=== PATIENT | female | born 1990 | race Caucasian/White ===

== ENCOUNTER 2016-08-18 08:40 | Emergency (ER) | payer OTHER ==
[2016-08-18 08:55] VITALS: BP 116/67
--- NOTE | 2016-08-18 10:05 | UC ---
Complaint Female HPI - HPI Summary HPI Summary: The patient comes in today for: 1. Hematuria: Onset: Yesterday. Palliative/provocative: Urination. Quality: Burning. Region: Severity: 09/25 Time: Constant. Associated symptoms: Vaginal bleeding: None Rectal bleeding: None. Dysuria: "There is some heat to urination." Urinary frequency: None. Urinary urgency: None. Fevers: None. Last UTI: Unknown. Dysparunia: Noticed two nights ago. She suspected that she may have had a UTI in the past. Previous UTI: These would usually present with "heat" with urination. She states that the present discomfort is more than her UTI's in the past. She states that she drank beet juice. * - History Of Current Complaint Chief Complaint: UC Stated Complaint: BLOOD IN URINE Time Seen by Provider: 08/18/16 09:57 Hx Obtained From: Patient Hx Last Menstrual Period: 07/31/16, has IUD ?: No - Allergies/Home Medications Allergies/Adverse Reactions: Allergies Allergy/AdvReac Type Severity Reaction Status Date / Time Bupropion [From Wellbutrin] Allergy Rash Verified 08/18/16 08:47 PMH/Surg Hx/FS Hx/Imm Hx Previously Healthy: Yes Endocrine History Of: Denies: Diabetes, Thyroid Disease, Hyperthyroidism, Hypothyroidism, Dyslipidemia Cardiovascular History Of: Denies: Cardiac Disorders, Hypertension, Pacemaker/ICD, Myocardial Infarction , Congestive Heart Failure, Atrial Fibrillation, Deep Vein Thrombosis, Bleeding Disorders Respiratory History Of: Denies: COPD, Asthma, Bronchitis, Pneumonia, Pulmonary Embolism GI/ History Of: Denies: Gastroesophageal Reflux, Ulcer, Gastrointestinal Bleed, Gall Bladder Disease, Kidney Stones, Diverticulitis, Renal Disease, Urosepsis Neurological History Of: Denies: TIA, CVA, Dementia, Seizures, Migraine Psychological History Of: Denies: Anxiety, Depression, Bipolar Disorder, Schizophrenia, Post Traumatic Stress Disorder Cancer History Of: Denies: Lung Cancer, Colorectal Cancer, Breast Cancer, Prostate Cancer, Cervical Cancer Other History Of: Negative For: HIV, Hepatitis B, Hepatitis C, Anticoagulant Therapy - Surgical History Surgical History: None - Family History Known Family History: Positive: Cardiac Disease Negative: Hypertension - Social History Occupation: Employed Full-time Alcohol Use: None Substance Use Type: None Smoking Status (MU): Light Every Day Tobacco Smoker Amount Used/How Often: 1-2 sig a day - Immunization History Most Recent Influenza Vaccination: none Review of Systems Constitutional: Negative Skin: Negative Eyes: Negative ENT: Negative Respiratory: Cough - She minimizes this symptom. She was not coughing during the exam. Cardiovascular: Negative Gastrointestinal: Negative Genitourinary: Dysuria, Hematuria All Other Systems Reviewed And Are Negative: Yes Physical Exam Triage Information Reviewed: Yes Appearance: Well-Appearing, No Pain Distress, Well-Nourished Vital Signs: Initial Vital Signs Temp 98.7 F 08/18/16 08:48 Pulse 74 08/18/16 08:48 Resp 16 08/18/16 08:48 BP 116/67 08/18/16 08:48 Pulse Ox 98 08/18/16 08:48 Vital Signs Reviewed: Yes Eyes: Positive: Conjunctiva Clear. Negative: Discharge ENT: Positive: Hearing grossly normal. Negative: Pharyngeal erythema, Nasal congestion, Nasal drainage, TM bulging, TM dull, TM red, Tonsillar swelling, Tonsillar exudate Dental: Negative: Gross Decay/Caries @, Dental Fracture @ Neck: Positive: Supple, Nontender, No Lymphadenopathy. Negative: Nuchal Rigidity Respiratory: Positive: Chest non-tender, Lungs clear, No respiratory distress, No accessory muscle use. Negative: Rhonchi, Wheezing Cardiovascular: Positive: RRR, No Murmur Abdomen Description: Positive: Nontender, No Organomegaly, Soft. Negative: CVA Tenderness (R), CVA Tenderness (L), Distended, Guarding Musculoskeletal: Positive: Strength Intact, ROM Intact, No Edema Neurological: Positive: Alert, Muscle Tone Normal Psychological: Positive: Age Appropriate Behavior, Consolable Skin: Negative: rashes, breakdown Diagnostics - Laboratory Diagnostic Studies Completed/Ordered: Urine screen: specific gravity: 1.035. WBC: 75. Nitrite: (-). Blood: (-). Protein: 30. Glucose: (-) Complaint Female Dx - Differential Dx/Diagnosis Provider Diagnoses: UTI Discharge - Discharge Plan Condition: Stable Disposition: HOME Patient Education Materials: Urinary Tract Infection in Women (ED) Referrals: Rachel Miller MD [Primary Care Provider] - 1 Week (Please see your primary care provider in a week to see how well you are doing. If you get worse, please be seen sooner in the ER or through us.)
== END 2016-08-18 10:25 | disposition home or self-care (01) ==
LOC: UCEAST 08:40
DX: N39.0 Urinary tract infection, site not specified (principal); R31.9 Hematuria, unspecified; Z87.440 Personal history of urinary (tract) infections; Z88.8 Allergy status to other drugs, medicaments and biological substances; F17.210 Nicotine dependence, cigarettes, uncomplicated
CPT/HCPCS: 81002; 87086; 99212; G0463

== ENCOUNTER 2016-09-24 17:53 | Emergency (ER) | payer OTHER ==
[2016-09-24 18:18] VITALS: BP 128/56
[2016-09-24] MEDS ORDERED: Ibuprofen TAB* 600 MG PO ONE (18:53)
[2016-09-24] MEDS ORDERED: Penicillin G Benzathine 1.2MU* 1,200,000 UNITS/2 ML SYR IM ONE (19:03)
--- NOTE | 2016-09-24 19:08 | UC ---
Throat Pain/Nasal Maulik HPI - HPI Summary HPI Summary: Rapid onset of ST, fever, aching, malaise starting last night. 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 Feels like past strep infections. - History of Current Complaint Chief Complaint: UCGeneralIllness Stated Complaint: SORE THROAT Time Seen by Provider: 09/24/16 18:49 Hx Obtained From: Patient Hx Last Menstrual Period: mid August, has IUD ?: No Onset/Duration: Gradual Onset, Lasting Hours Severity: Moderate Cough: None Associated Signs & Symptoms: Positive: Fever - Allergies/Home Medications Allergies/Adverse Reactions: Allergies Allergy/AdvReac Type Severity Reaction Status Date / Time Bupropion [From Wellbutrin] Allergy Rash Verified 09/24/16 18:09 Home Medications: Home Medications Acetaminophen [Extra Strength Acetaminop] 1,000 mg PO Q6H PRN 09/24/16 [History Confirmed 09/24/16] PMH/Surg Hx/FS Hx/Imm Hx Endocrine History Of: Denies: Diabetes, Thyroid Disease, Hyperthyroidism, Hypothyroidism, Dyslipidemia Cardiovascular History Of: Denies: Cardiac Disorders, Hypertension, Pacemaker/ICD, Myocardial Infarction , Congestive Heart Failure, Atrial Fibrillation, Deep Vein Thrombosis, Bleeding Disorders Respiratory History Of: Denies: COPD, Asthma, Bronchitis, Pneumonia, Pulmonary Embolism GI/ History Of: Denies: Gastroesophageal Reflux, Ulcer, Gastrointestinal Bleed, Gall Bladder Disease, Kidney Stones, Diverticulitis, Renal Disease, Urosepsis Neurological History Of: Denies: TIA, CVA, Dementia, Seizures, Migraine Psychological History Of: Denies: Anxiety, Depression, Bipolar Disorder, Schizophrenia, Post Traumatic Stress Disorder Cancer History Of: Denies: Lung Cancer, Colorectal Cancer, Breast Cancer, Prostate Cancer, Cervical Cancer Other History Of: Negative For: HIV, Hepatitis B, Hepatitis C, Anticoagulant Therapy - Surgical History Surgical History: None - Family History Known Family History: Positive: Cardiac Disease Negative: Hypertension - Social History Occupation: Employed Full-time Alcohol Use: None Alcohol Amount: none for 6 yrs Substance Use Type: None Smoking Status (MU): Light Every Day Tobacco Smoker Amount Used/How Often: 1-2 sig a day - Immunization History Most Recent Influenza Vaccination: none Review of Systems Constitutional: Fever Skin: Negative Eyes: Negative ENT: Sore Throat Respiratory: Negative Cardiovascular: Negative Gastrointestinal: Negative Genitourinary: Negative Motor: Negative Neurovascular: Negative Musculoskeletal: Negative Neurological: Negative Psychological: Negative All Other Systems Reviewed And Are Negative: Yes Physical Exam Triage Information Reviewed: Yes Appearance: Well-Nourished, Ill-Appearing - lying on table, uncomfortable Vital Signs: Initial Vital Signs Temp 100.4 F 09/24/16 18:12 Pulse 100 09/24/16 18:12 Resp 16 09/24/16 18:12 BP 128/56 09/24/16 18:12 Pulse Ox 98 09/24/16 18:12 Vital Signs Reviewed: Yes Eye Exam: Normal Eyes: Positive: Conjunctiva Clear ENT: Positive: Hearing grossly normal, Pharyngeal erythema, TMs normal, Tonsillar swelling Dental Exam: Normal Neck: Positive: Supple, Enlarged Nodes @ - tonsillar Respiratory Exam: Normal Respiratory: Positive: Chest non-tender, Lungs clear, Normal breath sounds, No respiratory distress, No accessory muscle use Cardiovascular Exam: Normal Cardiovascular: Positive: RRR, No Murmur Musculoskeletal Exam: Normal Neurological Exam: Normal Neurological: Positive: Alert Psychological Exam: Normal Skin Exam: Normal Throat Pain/Nasal Course/Dx - Course Course Of Treatment: Discussed clinical dx of strep using [facility] criteria. Offered RST, pt feels it is strep and would prefer to get home. Would want abx tx even if RST was negative. - Differential Dx/Diagnosis Provider Diagnoses: strep pharyngitis, clinical diagnosis Discharge - Discharge Plan Condition: Stable Disposition: HOME Patient Education Materials: Strep Throat (ED) Referrals: Rachel Miller MD [Primary Care Provider] -
== END 2016-09-24 19:26 | disposition home or self-care (01) ==
LOC: UCEAST 17:53
DX: J02.0 Streptococcal pharyngitis (principal); F17.210 Nicotine dependence, cigarettes, uncomplicated
CPT/HCPCS: 96372; 99211; A9270-GY; G0463; J0558

== ENCOUNTER 2016-12-04 16:04 | Emergency (ER) | payer OTHER ==
[2016-12-04 16:10] VITALS: BP 116/65
[2016-12-04] MEDS ORDERED: Fluorescein Sodium TOPICAL* 1 MG TEST OPHTHALMIC ONE (17:56)
[2016-12-04] MEDS ORDERED: Tetracaine 0.5% OPTH.SOL 4 ML* 1 DROP BTL BOTH EYES ONE (17:57)
[2016-12-04] MEDS ORDERED: Acetaminophen TAB* 325 MG PO ONE (18:03)
[2016-12-04] MEDS ORDERED: BSS OPTH.SOL* BTL ONE (18:06)
[2016-12-04] MEDS ORDERED: Penicillin G Benzathine 1.2MU* 1,200,000 UNITS/2 ML SYR IM ONE (18:38)
[2016-12-04] MEDS ORDERED: Tobramycin 0.3% OPHTH.SOL* 5 ML BOT (regular eye drops) BOTH EYES ONE (18:39)
--- NOTE | 2016-12-04 19:11 | UC ---
Omar Olguin Benjamin, scribed for Rosio Ramey MD on 12/04/16 at 1751 . Eye Complaint HPI - HPI Summary HPI Summary: 26yo female who has been swimming a lot recently comes to c/o throat soreness since yesterday and then watery right eye last night. This morning, pt started to have redness and itchiness in both eyes that is worse on the right. Pt also reports crusting on right eye, and some mild cough. Pt works at [employer]. Pt does not wear contacts, does not recall FB getting in her eye. Does wear mascara. Hx recent strep. - History of Current Complaint Chief Complaint: UCEye Stated Complaint: EYE COMPLAINT Hx Obtained From: Patient Hx Last Menstrual Period: one week ago ?: No Onset/Duration: Gradual Onset, Lasting Days - 1 day, Still Present, Worse Since - gradually worsening Timing: Constant Severity Initially: Mild Severity Currently: Mild Pain Intensity: 2 Pain Scale Used: 0-10 Numeric Location of Injury: Conjunctiva - no injury, just redness Character: Foreign Body Sensation Aggravating Factor(s): Nothing Alleviating Factor(s): Nothing Associated Signs And Symptoms: Positive: Drainage (Clear), Drainage (Purulent) - right eye. Negative: Vision Impairment Bilateral, Vision Impairment Right, Vision Impairment Left Related History: Other - sore throat - Risk Factors Penetrating Injury Risk Factor: Negative Globe Rupture Risk Factors: Negative Acute Glaucoma Risk Factors: Negative Optic Artery Occlusion Risk Factors: Negative - Allergies/Home Medications Allergies/Adverse Reactions: Allergies Allergy/AdvReac Type Severity Reaction Status Date / Time Bupropion [From Wellbutrin] Allergy Rash Verified 12/04/16 16:11 PMH/Surg Hx/FS Hx/Imm Hx Previously Healthy: Yes Other History Of: Negative For: HIV, Hepatitis B, Hepatitis C, Anticoagulant Therapy - Surgical History Surgical History: None - Family History Known Family History: Positive: Cardiac Disease, Other - allergies (son) Negative: Hypertension - Social History Occupation: Employed Full-time - [employer], researcher Lives: With Family Alcohol Use: None Alcohol Amount: none for 6 yrs Substance Use Type: None Smoking Status (MU): Light Every Day Tobacco Smoker Amount Used/How Often: 1-2 sig a day - Immunization History Most Recent Influenza Vaccination: none Review of Systems Constitutional: Negative Skin: Negative Eyes: Drainage - right with exudate, bilat clear, Eye Redness - bilateral, right worse than left, Other - crusting and itchiness in eyes ENT: Sore Throat Respiratory: Cough Cardiovascular: Negative Gastrointestinal: Negative Genitourinary: Negative Motor: Negative Neurovascular: Negative Musculoskeletal: Negative Neurological: Negative Psychological: Negative All Other Systems Reviewed And Are Negative: Yes Physical Exam Triage Information Reviewed: Yes Appearance: Well-Appearing, Well-Nourished, Pain Distress Vital Signs: Initial Vital Signs Temp 97.9 F 12/04/16 16:06 Pulse 65 12/04/16 16:06 Resp 12 12/04/16 16:06 BP 116/65 12/04/16 16:06 Pulse Ox 99 12/04/16 16:06 Vital Signs Reviewed: Yes Eyes: Positive: Conjunctiva Inflamed - redness bilaterally, Other: - vision acuity noted. exudate on right: Tetracaine applied bilat, fluor strip bilat, no corneal abrasion, no FB ENT: Positive: Hearing grossly normal, Pharyngeal erythema, TMs normal. Negative: Muffled/hoarse voice Neck: Positive: Supple, Nontender, No Lymphadenopathy Respiratory: Positive: Lungs clear, Normal breath sounds, No respiratory distress Cardiovascular: Positive: RRR, No Murmur, Pulses Normal, Brisk Capillary Refill Musculoskeletal: Positive: Strength Intact, ROM Intact Neurological: Positive: Alert, Muscle Tone Normal Psychological Exam: Normal Skin Exam: Normal Eye Complaint Course/Dx - Course Course Of Treatment: Reviewed medication lists and known allergies. 26yo female c/o sore throat since yesterday, which pt then started getting redness and itchiness in bilateral eyes, worse on the right. Pt reports swimming a lot last weekend. Pt wears eyeglasses but does not use contact lens. Pt has posterior pharyngeal erythema, bilateral conjunctival erthema, and right eye exudate. Strep is positive, pt requests to be treated with bicillin LA. Pt also given tobramycin ophthalmic solution to use bilat for conjunctivitis. - Differential Dx/Diagnosis Differential Diagnosis/HQI/PQRI: Conjunctivitis, Corneal Abrasion, Periorbital Cellulitis Provider Diagnoses: Bacterial Conjunctivitis, right eye. Strep Throat. Tobacco Abuse Disorder. Discharge - Discharge Plan Condition: Stable Disposition: HOME Patient Education Materials: Conjunctivitis (ED), Strep Throat (ED) Referrals: [facility] [place] [facility] [Outside] Rachel Miller MD [Primary Care Provider] - The documentation as recorded by the Omar peoples Benjamin accurately reflects the service I personally performed and the decisions made by me, Rosio Ramey MD.
== END 2016-12-04 19:22 | disposition home or self-care (01) ==
LOC: UCEAST 16:04
DX: H10.023 Other mucopurulent conjunctivitis, bilateral (principal); J02.0 Streptococcal pharyngitis; F17.200 Nicotine dependence, unspecified, uncomplicated
CPT/HCPCS: 87651; 96372; 99212; A9270-GY; G0463; J0558

== ENCOUNTER 2018-10-13 22:55 | Emergency (ER) | payer OTHER ==
[2018-10-14] MEDS ORDERED: Amoxicillin/Clavulanate TAB* 875 MG PO ONE (00:30)
--- NOTE | 2018-10-14 00:33 | ED ---
Bite Injury/Animal - HPI Summary HPI Summary: 28-year-old female presents with cat bite to right hand today. States that that her cat is up to date on immunizations. Her immunizations are up-to-date. Her tetanus is up-to-date. She has no medical conditions. States she is traveling starting tomorrow. She is here for antibiotics. She states she washed her hands out with soap and water and put peroxide on them. She noticed some redness around the area. she has multiple puncture wounds to the right thumb and right index finger. - History of Current Complaint Chief Complaint: EDAnimalBite Stated Complaint: CAT BITE ON RT HAND PER PT Time Seen by Provider: 10/14/18 00:23 Hx Last Menstrual Period: one week ago Pain Intensity: 4 - Allergies/Home Medications Allergies/Adverse Reactions: Allergies Allergy/AdvReac Type Severity Reaction Status Date / Time bupropion Allergy Rash Verified 10/13/18 23:01 MS Bupropion Allergy Rash Verified 12/04/16 16:11 [From Wellbutrin] PMH/Surg Hx/FS Hx/Imm Hx Endocrine/Hematology History: Denies: Hx Anticoagulant Therapy, Hx Diabetes, Hx Thyroid Disease Cardiovascular History: Denies: Hx Congestive Heart Failure, Hx Deep Vein Thrombosis, Hx Hypertension , Hx Myocardial Infarction, Hx Pacemaker/ICD Respiratory History: Denies: Hx Asthma, Hx Chronic Obstructive Pulmonary Disease (COPD), Hx Lung Cancer, Hx Pneumonia, Hx Pulmonary Embolism GI History: Denies: Hx Gall Bladder Disease, Hx Gastrointestinal Bleed, Hx Ulcer, Hx Urosepsis History: Denies: Hx Kidney Stones, Hx Renal Disease Neurological History: Denies: Hx Dementia, Hx Migraine, Hx Seizures, Hx Transient Ischemic Attacks (TIA) Psychiatric History: Denies: Hx Anxiety, Hx Depression, Hx Schizophrenia, Hx Bipolar Disorder Infectious Disease History: No Infectious Disease History: Reports: Hx Clostridium Difficile, Hx of Known/ Suspected MRSA Denies: Hx Hepatitis, Hx Human Immunodeficiency Virus (HIV), Traveled Outside the [place] in Last 30 Days - Family History Known Family History: Positive: Cardiac Disease, Other - allergies (son) Negative: Hypertension - Social History Alcohol Use: None Alcohol Amount: none for 6 yrs Substance Use Type: Reports: None Smoking Status (MU): Light Every Day Tobacco Smoker Amount Used/How Often: 1-2 sig a day Review of Systems Negative: Fever Negative: Chest Pain Negative: Shortness Of Breath Positive: Other - cat bites right hand All Other Systems Reviewed And Are Negative: Yes Physical Exam Triage Information Reviewed: Yes Vital Signs On Initial Exam: Initial Vitals Temp Pulse Resp BP Pulse Ox 97 F 65 20 130/79 99 10/13/18 22:59 10/13/18 22:59 10/13/18 22:59 10/13/18 22:59 10/13/18 22:59 Vital Signs Reviewed: Yes Appearance: Positive: Well-Appearing Skin: Positive: Warm, Dry, Other - multiple bites on right thumb and index finger and palm of hand Head/Face: Positive: Normal Head/Face Inspection Eyes: Positive: Normal, Conjunctiva Clear ENT: Positive: Pharynx normal Respiratory/Lung Sounds: Positive: Clear to Auscultation, Breath Sounds Present Cardiovascular: Positive: Normal, RRR Musculoskeletal: Positive: Strength/ROM Intact - right hand, Other - good pulses Neurological: Positive: Normal Psychiatric: Positive: Normal Diagnostics - Vital Signs Vital Signs Temp Pulse Resp BP Pulse Ox 10/13/18 22:59 97 F 65 20 130/79 99 - Laboratory Lab Statement: Any lab studies that have been ordered have been reviewed, and results considered in the medical decision making process. Bite Injury Course/Dx - Course Course Of Treatment: 28-year-old female presents with cat bite to right hand today. States that that her cat is up to date on immunizations. Her immunizations are up-to-date. Her tetanus is up-to-date. She has no medical conditions. States she is traveling starting tomorrow. She is here for antibiotics. She states she washed her hands out with soap and water and put peroxide on them. She noticed some redness around the area. she has multiple puncture wounds to the right thumb and right index finger. Some erythema around them. Has full range of motion. Warned if cannot flex finger to return. warned to returned if develop fever or redness spreads. Patient understands and agrees with plan. - Diagnoses Differential Diagnosis/HQI/PQRI: Positive: Cellulitis, Puncture, Rabies Exposure Provider Diagnosis: Cat bite Discharge - Sign-Out/Discharge Documenting (check all that apply): Patient Departure Patient Received Moderate/Deep Sedation with Procedure: No - Discharge Plan Condition: Good Disposition: HOME Prescriptions: Amoxicillin/Clavulanate TAB* [Augmentin TAB 875*] 875 mg PO BID #14 tab Patient Education Materials: Animal Bite (ED) Referrals: No Primary Care Phys,NOPCP [Primary Care Provider] - Additional Instructions: take augmentin twice a day for 7 days Return to ED if develop spreading redness, fever, or an new or worsening symptoms - Billing Disposition and Condition Condition: GOOD Disposition: Home
[2018-10-14 00:54] VITALS: BP 114/73
== END 2018-10-14 00:49 | disposition home or self-care (01) ==
LOC: ED 22:55
DX: S61.451A Open bite of right hand, initial encounter (principal); W55.01XA Bitten by cat, initial encounter; Y92.9 Unspecified place or not applicable; Z86.14 Personal history of Methicillin resistant Staphylococcus aureus infection; F17.210 Nicotine dependence, cigarettes, uncomplicated
CPT/HCPCS: 99282; A9270-GY

== ENCOUNTER 2018-12-01 16:18 | Emergency (ER) | payer OTHER ==
[2018-12-01 16:31] VITALS: BP 121/58
--- NOTE | 2018-12-01 16:51 | UC ---
Lower Extremity/Ankle HPI - HPI Summary HPI Summary: pt ran in marathon yesterday and started to have R foot pain after race. no pain unless standing. took ibuprofen today and helped pain. no bruising or swelling - History of Current Complaint Chief Complaint: UCLowerExtremity Stated Complaint: R FOOT INJURY Time Seen by Provider: 12/01/18 16:21 Hx Obtained From: Patient Hx Last Menstrual Period: CURRENT Onset/Duration: Sudden Onset Severity Initially: Moderate Severity Currently: Moderate Pain Intensity: 6 Aggravating Factor(s): Standing Alleviating Factor(s): Rest Able to Bear Weight: Yes - Allergies/Home Medications Allergies/Adverse Reactions: Allergies Allergy/AdvReac Type Severity Reaction Status Date / Time bupropion Allergy Rash Verified 12/01/18 16:31 Home Medications: Home Medications Ibuprofen TAB* [Advil TAB*] 600 mg PO ONCE PRN 12/01/18 [History Confirmed 12/01] PMH/Surg Hx/FS Hx/Imm Hx Previously Healthy: Yes Other History Of: Negative For: HIV, Hepatitis B, Hepatitis C, Anticoagulant Therapy - Surgical History Surgical History: Yes Surgery Procedure, Year, and Place: ADDENOIDECTOMY, LEAP, COLPOSCOPY - Family History Known Family History: Positive: Cardiac Disease, Other - allergies (son) Negative: Hypertension - Social History Occupation: Student Lives: With Family Alcohol Use: None Alcohol Amount: SOBER SINCE 2010 Substance Use Type: None Smoking Status (MU): Former Smoker Amount Used/How Often: VAPE - Immunization History Most Recent Influenza Vaccination: none Review of Systems All Other Systems Reviewed And Are Negative: Yes Constitutional: Positive: Negative Skin: Positive: Negative. Negative: Bruising Respiratory: Positive: Negative Cardiovascular: Positive: Negative Musculoskeletal: Negative: Decreased ROM, Edema Psychological: Positive: Negative Is Patient Immunocompromised?: No Physical Exam Triage Information Reviewed: Yes Appearance: Well-Appearing, No Pain Distress, Well-Nourished Vital Signs: Initial Vital Signs Temp 98.2 F 12/01/18 16:27 Pulse 87 12/01/18 16:27 Resp 16 12/01/18 16:27 BP 121/58 12/01/18 16:27 Pulse Ox 97 12/01/18 16:27 Vital Signs Reviewed: Yes Respiratory Exam: Normal Cardiovascular Exam: Normal Musculoskeletal Exam: Normal Musculoskeletal: Positive: Strength Intact, ROM Intact, No Edema Psychological Exam: Normal Skin Exam: Normal Diagnostics - Radiology No standard instances Radiology Interpretation Completed By: Radiologist - no fracture Lower Extremity Course/Dx - Differential Dx/Diagnosis Differential Diagnosis/HQI/PQRI: Fracture (Closed), Sprain, Strain Provider Diagnosis: Right foot strain Discharge - Sign-Out/Discharge Documenting (check all that apply): Patient Departure All imaging exams completed and their final reports reviewed: Yes - Discharge Plan Condition: Good Disposition: HOME Patient Education Materials: Muscle Strain (ED) Referrals: No Primary Care Phys,NOPCP [Primary Care Provider] - Misha Gruber MD [Medical Doctor] - 1 Week (if no better) Additional Instructions: ice and elevate foot. Use amadeo and post-op shoe for 1 week ibuprofen 400-600mg every 6 hours as needed for pain follow-up with ortho if no better 1-2 weeks - Billing Disposition and Condition Condition: GOOD Disposition: Home
== END 2018-12-01 17:16 | disposition home or self-care (01) ==
LOC: UCEAST 16:18
DX: S96.911A Strain of unspecified muscle and tendon at ankle and foot level, right foot, initial encounter (principal); Y93.02 Activity, running; Y93.89 Activity, other specified; Y92.9 Unspecified place or not applicable; Z87.891 Personal history of nicotine dependence
CPT/HCPCS: 99213; G0463